=== PATIENT | female | born 1955 | race Caucasian/White ===

== ENCOUNTER 2016-06-13 09:55 | Emergency (ER) | payer BC ==
[2016-06-13 11:34] VITALS: BP 106/65
--- NOTE | 2016-06-13 12:17 | UC ---
Throat Pain/Nasal Sterling HPI - HPI Summary HPI Summary: presents with c/o nasal congestion, generalized malaise, chills, cough, PND sinus pressure and tenderness X 10 days. - History of Current Complaint Chief Complaint: UCGeneralIllness Stated Complaint: SINUSES Hx Obtained From: Patient Hx Last Menstrual Period: n/a ?: No Onset/Duration: Gradual Onset, Lasting Days - 10 Severity: Moderate Associated Signs & Symptoms: Positive: Sinus Discomfort, Other - chills, nasal congestion - Epiglottits Risk Factors Epiglottis Risk Factors: Negative - Allergies/Home Medications Allergies/Adverse Reactions: Allergies Allergy/AdvReac Type Severity Reaction Status Date / Time bee stings Allergy See Comment Uncoded 06/13/16 11:26 Home Medications: Home Medications guaiFENesin LIQ* [Robitussin*] 10 ml PO Q4H PRN 06/13/16 [History Confirmed ] PMH/Surg Hx/FS Hx/Imm Hx Previously Healthy: Yes Endocrine History Of: Denies: Diabetes Cardiovascular History Of: Denies: Cardiac Disorders Respiratory History Of: Denies: COPD GI/ History Of: Denies: Gastroesophageal Reflux Neurological History Of: Denies: TIA Cancer History Of: Denies: Lung Cancer Other History Of: Negative For: HIV - Surgical History Surgical History: Yes Surgery Procedure, Year, and Place: wisdom teeth; nasal septum repair about 2003 - Family History Known Family History: Positive: Cardiac Disease, Other - Social History Occupation: Employed Full-time Lives: With Family Alcohol Use: Weekly Alcohol Amount: 2 Substance Use Type: None Smoking Status (MU): Never Smoked Tobacco Review of Systems Constitutional: Fever, Chills, Fatigue Skin: Negative Eyes: Negative ENT: Sore Throat, Ear Ache, Other Respiratory: Cough Cardiovascular: Negative Gastrointestinal: Negative Genitourinary: Negative Motor: Negative Neurovascular: Negative Musculoskeletal: Myalgia Neurological: Headache Psychological: Negative All Other Systems Reviewed And Are Negative: Yes Physical Exam Triage Information Reviewed: Yes Appearance: Ill-Appearing Vital Signs: Initial Vital Signs Temp 99.8 F 06/13/16 11:28 Pulse 73 06/13/16 11:28 Resp 16 06/13/16 11:28 BP 106/65 06/13/16 11:28 Pulse Ox 100 06/13/16 11:28 Vital Signs Reviewed: Yes Eye Exam: Normal ENT: Positive: Nasal congestion, TM bulging - right TM, TM red - right TM, edges of right TM Neck exam: Normal Respiratory Exam: Normal Cardiovascular Exam: Normal Musculoskeletal Exam: Normal Neurological Exam: Normal Psychological Exam: Normal Skin Exam: Normal Throat Pain/Nasal Course/Dx - Differential Dx/Diagnosis Differential Diagnosis/HQI/PQRI: Influenza, Otitis Media, Sinusitis, Tonsillitis Provider Diagnoses: sinusitis Discharge - Discharge Plan Condition: Stable Disposition: HOME Prescriptions: Amoxicillin (*) [Amoxicillin 875 MG (*)] 875 mg PO BID #20 tab Loratadine & Pseudoephedrine [Loratadine/Pseudoephedrin 10-240 mg] 1 tab PO DAILY #10 tab Patient Education Materials: Sinusitis (ED) Referrals: Lan Pruitt MD [Primary Care Provider] - If Needed Additional Instructions: Please follow up with your PCP or return to clinic as needed.
== END 2016-06-13 12:36 | disposition home or self-care (01) ==
LOC: UCCORT 09:55
DX: J32.9 Chronic sinusitis, unspecified (principal)
CPT/HCPCS: 99212; G0463

== ENCOUNTER 2016-08-30 18:17 | Emergency (ER) | payer BC ==
[2016-08-30 18:46] VITALS: BP 104/67
--- NOTE | 2016-08-30 19:16 | UC ---
Throat Pain/Nasal [place] HPI - HPI Summary HPI Summary: ST and cough x 8 days and swollen glands george on the right. No fever. Has been taking robitussin, and will bring up sputum when she takes that, but then after the robitussin wears off in 45 mins it goes back to dry cough. When the cough is productive the sputum is yellow. No chest pain, but with coughing, gets pain in her right shoulder. Some SOB. No hx asthma or wheezing. Had bilat ear infxs and had two courses of antibiotics but feels like her ears aren't back to normal. - History of Current Complaint Chief Complaint: UCGeneralIllness Stated Complaint: SORE THROAT AND COUGH Time Seen by Provider: 08/30/16 19:15 Hx Obtained From: Patient Hx Last Menstrual Period: n/a Onset/Duration: Gradual Onset, Lasting Days, Still Present Severity: Moderate Pain Intensity: 0 Pain Scale Used: 0-10 Numeric Cough: Nonproductive Associated Signs & Symptoms: Positive: Hoarseness, Nasal Discharge - Epiglottits Risk Factors Epiglottis Risk Factors: Negative - Allergies/Home Medications Allergies/Adverse Reactions: Allergies Allergy/AdvReac Type Severity Reaction Status Date / Time bee stings Allergy See Comment Uncoded 08/30/16 18:47 PMH/Surg Hx/FS Hx/Imm Hx Previously Healthy: Yes Other History Of: Negative For: HIV - Surgical History Surgical History: Yes Surgery Procedure, Year, and Place: wisdom teeth; nasal septum repair about 2003 - Family History Known Family History: Positive: None, Cardiac Disease, Other - asthma - Social History Alcohol Use: Occasionally Alcohol Amount: 2 Substance Use Type: None Smoking Status (MU): Never Smoked Tobacco Review of Systems Constitutional: Negative Skin: Negative Eyes: Negative ENT: Sore Throat, Other - hearing is muffled Respiratory: Cough Cardiovascular: Negative Gastrointestinal: Negative Genitourinary: Negative Motor: Negative Neurovascular: Negative Musculoskeletal: Negative Neurological: Negative Psychological: Negative All Other Systems Reviewed And Are Negative: Yes Physical Exam Triage Information Reviewed: Yes Appearance: No Pain Distress, Well-Nourished, Ill-Appearing Vital Signs: Initial Vital Signs Temp 99.2 F 08/30/16 18:41 Pulse 64 08/30/16 18:41 Resp 16 08/30/16 18:41 BP 104/67 08/30/16 18:41 Pulse Ox 100 08/30/16 18:41 Vital Signs Reviewed: Yes Eyes: Positive: Conjunctiva Clear ENT: Positive: Hearing grossly normal, Pharyngeal erythema, TMs normal, Muffled/ hoarse voice Neck: Positive: Supple, Nontender, No Lymphadenopathy Respiratory: Positive: Lungs clear, Normal breath sounds, No respiratory distress Cardiovascular: Positive: RRR, No Murmur, Pulses Normal, Brisk Capillary Refill Musculoskeletal: Positive: Strength Intact, ROM Intact Neurological: Positive: Alert, Muscle Tone Normal Psychological Exam: Normal Skin Exam: Normal Throat Pain/Nasal Course/Dx - Course Course Of Treatment: rapid A neg - Differential Dx/Diagnosis Differential Diagnosis/HQI/PQRI: Laryngitis, Otitis Media, Pharyngitis, Sinusitis, URI, Other - bronchitis Provider Diagnoses: bronchitis Discharge - Discharge Plan Condition: Stable Disposition: HOME Prescriptions: RX: Azithromycin TAB* [Zithromax TAB (Z-JACQUE) 250 mg #6 tabs] 2 tab PO .TODAY, THEN 1 DAILY #1 jacque Benzonatate CAP* [Tessalon 100 MG CAP*] 100 mg PO TID PRN #20 cap PRN Reason: Cough guaiFENesin/CODIEN 100MG-10MG* [Robitussin AC 100Mg-10Mg*] 5 ml PO Q4H PRN #100 ml MDD 20ml PRN Reason: Cough Patient Education Materials: Acute Bronchitis (ED) Referrals: Lan Pruitt MD [Primary Care Provider] - Additional Instructions: You may want to buy plain mucinex to help with your cough. Return to urgent care if you have any new or worsening symptoms.
== END 2016-08-30 19:55 | disposition home or self-care (01) ==
LOC: UCCORT 18:17
DX: J40 Bronchitis, not specified as acute or chronic (principal)
CPT/HCPCS: 87651; 99212; G0463